=== PATIENT | male | born 1950 | race Caucasian/White ===

== ENCOUNTER 2018-07-09 23:38 | Emergency (ER) | payer MEDICARE ==
[~2018-07-09] VITALS: Ht 177.8 cm; Wt 65.3 kg
[2018-07-10] MEDS ORDERED: fentaNYL PF VIAL 100 MCG/2 ML VIAL IV ONE
[2018-07-10] MEDS ORDERED: FAMOTIDINE 20 MG/2 ML VIAL IVP ONE
[2018-07-10] MEDS ORDERED: ONDANSETRON PF 4 MG/2 ML VIAL. IV ONE
[2018-07-10 00:18] VITALS: BP 122/58
--- NOTE | 2018-07-10 00:23 | PHYS DOC ---
Past Medical History Past Medical History: Other Additional Past Medical Histor: NARCOLEPSY, HERNIA Additional Past Surgical Histo: HERNIA REPAIR Alcohol Use: Occasionally Drug Use: None Adult General Chief Complaint Chief Complaint: NAUSEA/VOMITING/DIARRHA HPI HPI Patient is a 68 year old male presents with abdominal pain. Patient states he has been having abdominal pain for 1 week and describes it as a crampy sensation. The pain is located in his lower abdominal region with no radiation. Additionally, the patient had an episode of nonbilious nonbloody vomit after eating food this evening. Nothing seems to improve his pain. Patient states he has been able to keep liquids down today. He denies any fevers, chills, diarrhea, hematochezia, hematemesis, chest pain, or shortness of breath. Review of Systems Review of Systems Constitutional: Denies fever or chills [] Eyes: Denies change in visual acuity, redness, or eye pain [] HENT: Denies nasal congestion or sore throat [] Respiratory: Denies cough or shortness of breath [] Cardiovascular: Denies chest pain or palpitations [] GI: Reports abdominal pain, nausea, vomiting, denies bloody stools or diarrhea [ ] : Denies dysuria or hematuria [] Musculoskeletal: Denies back pain or joint pain [] Integument: Denies rash or skin lesions [] Neurologic: Denies headache or focal weakness [] Complete systems were reviewed and found to be within normal limits, except as documented in this note. Current Medications Current Medications Current Medications Medications (Trade) Dose Ordered Sig/Astrid Start Time Stop Time Status Last Admin Dose Admin Famotidine (Pepcid Vial) 20 mg 1X ONCE 07/10/18 00:00 07/10/18 00:01 DC 07/10/18 00:32 20 MG Fentanyl Citrate (Fentanyl 2ml Vial) 50 mcg 1X ONCE 07/10/18 00:00 07/10/18 00:01 DC 07/10/18 00:32 50 MCG Ondansetron HCl (Zofran) 4 mg 1X ONCE 07/10/18 00:00 07/10/18 00:01 DC 07/10/18 00:32 4 MG Allergies Allergies Allergies Coded Allergies Type Severity Reaction Last Updated Verified Iodinated Contrast- Oral and IV Dye Allergy Unknown 07/09/18 Yes Physical Exam Physical Exam Constitutional: No acute distress, non-toxic appearance. [] HENT: Normocephalic, atraumatic, bilateral external ears normal, nose normal. [] Eyes: EOMI, conjunctiva normal. [] Neck: Normal range of motion, no tenderness, supple. [] Cardiovascular:Heart rate regular rhythm, no murmur [] Lungs & Thorax: Bilateral breath sounds clear to auscultation [] Abdomen: Bowel sounds normal, soft, lower abdominal tenderness, no rebound, rigidity, or guarding, no peritoneal sings, no rovsing, McBurney's, oscar or psoas signs. [] Skin: Warm, dry, no erythema, no rash. [] Back: No tenderness, no CVA tenderness. [] Extremities: No clubbing, ROM intact, no edema. [] Neurologic: Alert and oriented X 3, normal motor function, no focal deficits noted. [] Psychologic: Affect normal, mood normal. [] Current Patient Data Vital Signs Vital Signs Date Time Temp Pulse Resp B/P (MAP) Pulse Ox O2 Delivery O2 Flow Rate FiO2 07/10/18 00:32 100 Room Air 07/09/18 23:49 98.0 129 18 164/77 (106) 98.0 Lab Values Laboratory Tests Test 07/10/18 00:20 07/10/18 01:50 White Blood Count 6.6 x10^3/uL (4.0-11.0) Red Blood Count 3.72 x10^6/uL (4.30-5.70) L Hemoglobin 12.4 g/dL (13.0-17.5) L Hematocrit 36.7 % (39.0-53.0) L Mean Corpuscular Volume 99 fL (79-100) Mean Corpuscular Hemoglobin 33 pg (25-35) Mean Corpuscular Hemoglobin Concent 34 g/dL (31-37) Red Cell Distribution Width 16.9 % (11.5-14.5) H Platelet Count 156 x10^3/uL (140-400) Neutrophils (%) (Auto) 90 % (31-73) H Lymphocytes (%) (Auto) 2 % (24-48) L Monocytes (%) (Auto) 5 % (0-9) Eosinophils (%) (Auto) 2 % (0-3) Basophils (%) (Auto) 1 % (0-3) Neutrophils # (Auto) 5.9 x10^3uL (1.8-7.7) Lymphocytes # (Auto) 0.1 x10^3/uL (1.0-4.8) L Monocytes # (Auto) 0.3 x10^3/uL (0.0-1.1) Eosinophils # (Auto) 0.1 x10^3/uL (0.0-0.7) Basophils # (Auto) 0.1 x10^3/uL (0.0-0.2) Segmented Neutrophils % 84 % (35-66) H Band Neutrophils % 8 % (0-9) Lymphocytes % 1 % (24-48) L Monocytes % 4 % (0-10) Eosinophils % 3 % (0-5) Platelet Estimate Adequate (ADEQUATE) Prothrombin Time 14.8 SEC (11.7-14.0) H Prothrombin Time INR 1.2 (0.8-1.1) H PTT 30 SEC (24-38) Sodium Level 139 mmol/L (136-145) Potassium Level 4.6 mmol/L (3.5-5.1) Chloride Level 101 mmol/L (98-107) Carbon Dioxide Level 28 mmol/L (21-32) Anion Gap 10 (6-14) Blood Urea Nitrogen 13 mg/dL (8-26) Creatinine 1.0 mg/dL (0.7-1.3) Estimated GFR (Cockcroft-Gault) 74.1 BUN/Creatinine Ratio 13 (6-20) Glucose Level 120 mg/dL (70-99) H Lactic Acid Level 1.4 mmol/L (0.4-2.0) Calcium Level 8.6 mg/dL (8.5-10.1) Total Bilirubin 0.8 mg/dL (0.2-1.0) Aspartate Amino Transferase (AST) 55 U/L (15-37) H Alanine Aminotransferase (ALT) 32 U/L (16-63) Alkaline Phosphatase 122 U/L (46-116) H Total Protein 7.6 g/dL (6.4-8.2) Albumin 2.9 g/dL (3.4-5.0) L Albumin/Globulin Ratio 0.6 (1.0-1.7) L Lipase 125 U/L (73-393) Urine Collection Type Unknown Urine Color Yellow Urine Clarity Clear Urine pH 7.0 Urine Specific [place] 1.020 Urine Protein Negative mg/dL (NEG-TRACE) Urine Glucose (UA) Negative mg/dL (NEG) Urine Ketones (Stick) Negative mg/dL (NEG) Urine Blood Negative (NEG) Urine Nitrite Negative (NEG) Urine Bilirubin Negative (NEG) Urine Urobilinogen Dipstick 1.0 mg/dL (0.2 mg/dL) Urine Leukocyte Esterase Negative (NEG) Urine RBC 0 /HPF (0-2) Urine WBC Occ /HPF (0-4) Urine Squamous Epithelial Cells Few /LPF Urine Bacteria 0 /HPF (0-FEW) Urine Mucus Mod /LPF Laboratory Tests 07/10/18 00:20 Laboratory Tests 07/10/18 00:20 EKG EKG [] Radiology/Procedures Radiology/Procedures PROCEDURE: CT ABDOMEN PELVIS WO CONTRAST EXAM: CT Abdomen and Pelvis without IV contrast CLINICAL HISTORY: abdominal pain, N/V. COMPARISON: none TECHNIQUE: Helical CT of the abdomen and pelvis without intravenous contrast. Axial, coronal and sagittal reformatted images were generated. PQRS compliance statement - One or more of the following individualized dose reduction techniques were utilized for this study: 1. Automated exposure control 2. Adjustment of the mA and/or kV according to patient size 3. Use of iterative reconstruction technique FINDINGS: Lack of intravenous contrast limits evaluation of solid organs, vasculature, and lymph nodes. Lower chest: Small right pleural effusion. Wedge-shaped right opacities in the right lower lobe with air bronchograms may represent consolidation or atelectasis. Tree-in-bud opacities in the middle lobe. Coronary calcifications are seen. Pacer leads are noted. Abdomen and Pelvis: No focal liver lesion. Gallstones are seen within the gallbladder. No biliary ductal dilatation. Pancreas is unremarkable. Spleen is mildly enlarged measuring up to 13 cm in length. Right upper pole and interpolar renal cystic lesions are seen. Vascular calcifications are seen within the kidneys bilaterally. Punctate nonobstructing left interpolar and 3 mm right interpolar nonobstructing renal calculus. Moderate colonic stool content is seen. Colonic diverticulosis without evidence for acute diverticulitis. Appendix is not seen. No abdominal or pelvic ascites. No abdominal or pelvic lymphadenopathy. Dense atherosclerotic calcifications of the infrarenal aorta with focal ectasia of the infrarenal aorta measuring up to 2.9 cm. There is diffuse fatty atrophy of the paraspinal muscles Bones: Hip joint degenerative changes are seen. Degenerative changes of spine are noted. IMPRESSION: 1. Airspace opacities right lower lobe with air bronchograms likely consolidation. However atelectasis is not entirely excluded. 2. Small right pleural effusion. 3. No evidence of bowel obstruction. 4. Appendix is not seen. 5. Colonic diverticulosis without evidence for acute diverticulitis. Electronically signed by: Shahzad Murray MD (07/10/2018 2:17 AM) [facility] [id number] DICTATED and SIGNED BY: SHAHZAD MURRAY MD[] Course & Med Decision Making Course & Med Decision Making 68 year old male presented to the ER for nausea and vomiting. Patient states he had one episode of nonbilious nonbloody vomit this evening. Labs and imaging were obtained and posted to chart. Symptomatic treatment provided with interval improvement. CT scan demonstrated diverticulosis and constipation. Provided patient with prescriptions for nausea and constipation. Additionally provided patient with list of primary care providers follow-up. Patient stable for discharge with outpatient follow-up with PCP. Discussed findings and plan with patient and family, who acknowledge understanding and agreement. Dragon Disclaimer Dragon Disclaimer This electronic medical record was generated, in whole or in part, using a voice recognition dictation system. Departure Departure Impression: Primary Impression: Nausea & vomiting Additional Impression: Constipation Disposition: 01 HOME, SELF-CARE Condition: STABLE Referrals: BETTIE RODRIGUEZ MD Patient Instructions: Constipation, Adult, [id number], Nausea and Vomiting, [id number] Scripts Sennosides/Docusate Sodium (Colace 2-in-1 Tablet) 1 Each Tablet 1 EACH PO HS PRN for CONSTIPATION, #14 TAB Prov: DARREL LOTT DO 07/10/18 Famotidine (PEPCID) 20 Mg Tablet 20 MG PO BID, #14 TAB Prov: DARREL LOTT DO 07/10/18 Hyoscyamine Sulfate (LEVSIN-SL) 0.125 Mg Tab.subl 1 TAB SL PRN Q4HRS PRN for PAIN, #14 TAB 0 Refills Prov: DARREL LOTT DO 07/10/18 Ondansetron (ONDANSETRON ODT) 4 Mg Tab.rapdis 1 TAB PO PRN Q6-8HRS for VOMITING, #14 TAB Prov: DARREL LOTT DO 07/10/18 Problem Qualifiers Primary Impression: Nausea & vomiting Vomiting type: unspecified Vomiting Intractability: unspecified Qualified Codes: R11.2 - Nausea with vomiting, unspecified Additional Impression: Constipation Constipation type: unspecified constipation type Qualified Codes: K59.00 - Constipation, unspecified DARREL LOTT DO Jul 10, 2018 00:23
[2018-07-10 00:32] LABS: BASO # 0.1 x10^3/uL (0.0-0.2); BASO % 1 % (0-3); EOS # 0.1 x10^3/uL (0.0-0.7); EOS % 2 % (0-3); HEMATOCRIT 36.7 % (39.0-53.0); HEMOGLOBIN 12.4 g/dL (13.0-17.5); LYMPH # 0.1 x10^3/uL (1.0-4.8); LYMPH % 2 % (24-48); MEAN CORPUSCULAR HEMOGLOBIN 33 pg (25-35); MEAN CORPUSCULAR HGB CONC 34 g/dL (31-37); MEAN CORPUSCULAR VOLUME 99 fL (79-100); MONO # 0.3 x10^3/uL (0.0-1.1); MONO % 5 % (0-9); NEUT # 5.9 x10^3uL (1.8-7.7); NEUT % 90 % (31-73); PLATELET COUNT 156 x10^3/uL (140-400); RED BLOOD COUNT 3.72 x10^6/uL (4.30-5.70); RED CELL DISTRIBUTION WIDTH 16.9 % (11.5-14.5); WHITE BLOOD COUNT 6.6 x10^3/uL (4.0-11.0)
[2018-07-10 00:41] LABS: CALCIUM 8.6 mg/dL (8.5-10.1); GFR 74.1; POTASSIUM 4.6 mmol/L (3.5-5.1)
[2018-07-10 00:43] LABS: PROTHROMBIN TIME PATIENT 14.8 SEC (11.7-14.0)
[2018-07-10 00:56] LABS: ALBUMIN 2.9 g/dL (3.4-5.0); ALBUMIN/GLOBULIN RATIO 0.6 (1.0-1.7); TOTAL BILIRUBIN 0.8 mg/dL (0.2-1.0); TOTAL PROTEIN 7.6 g/dL (6.4-8.2)
[2018-07-10 01:09] LABS: % BANDS 8 % (0-9); % EOS 3 % (0-5); % LYMPHS 1 % (24-48); % MONOS 4 % (0-10); % SEGS 84 % (35-66); PLT ESTIMATE ADEQUATE (ADEQUATE)
[2018-07-10 01:58] LABS: BILIRUBIN,URINE NEGATIVE (NEG); CLARITY,URINE CLEAR; COLOR,URINE YELLOW; NITRITE,URINE NEGATIVE (NEG); PROTEIN,URINE NEGATIVE (NEG-TRACE)
[2018-07-10 02:07] LABS: BACTERIA,URINE 0 /HPF (0-FEW); RBC,URINE 0 /HPF (0-2); SQUAMOUS EPITHELIAL CELL,UR FEW /LPF; WBC,URINE OCC /HPF (0-4)
--- NOTE | 2018-07-10 02:20 | RAD ---
EXAM: CT Abdomen and Pelvis without IV contrast CLINICAL HISTORY: abdominal pain, N/V. COMPARISON: none TECHNIQUE: Helical CT of the abdomen and pelvis without intravenous contrast. Axial, coronal and sagittal reformatted images were generated. PQRS compliance statement - One or more of the following individualized dose reduction techniques were utilized for this study: 1. Automated exposure control 2. Adjustment of the mA and/or kV according to patient size 3. Use of iterative reconstruction technique FINDINGS: Lack of intravenous contrast limits evaluation of solid organs, vasculature, and lymph nodes. Lower chest: Small right pleural effusion. Wedge-shaped right opacities in the right lower lobe with air bronchograms may represent consolidation or atelectasis. Tree-in-bud opacities in the middle lobe. Coronary calcifications are seen. Pacer leads are noted. Abdomen and Pelvis: No focal liver lesion. Gallstones are seen within the gallbladder. No biliary ductal dilatation. Pancreas is unremarkable. Spleen is mildly enlarged measuring up to 13 cm in length. Right upper pole and interpolar renal cystic lesions are seen. Vascular calcifications are seen within the kidneys bilaterally. Punctate nonobstructing left interpolar and 3 mm right interpolar nonobstructing renal calculus. Moderate colonic stool content is seen. Colonic diverticulosis without evidence for acute diverticulitis. Appendix is not seen. No abdominal or pelvic ascites. No abdominal or pelvic lymphadenopathy. Dense atherosclerotic calcifications of the infrarenal aorta with focal ectasia of the infrarenal aorta measuring up to 2.9 cm. There is diffuse fatty atrophy of the paraspinal muscles Bones: Hip joint degenerative changes are seen. Degenerative changes of spine are noted. IMPRESSION: 1. Airspace opacities right lower lobe with air bronchograms likely consolidation. However atelectasis is not entirely excluded. 2. Small right pleural effusion. 3. No evidence of bowel obstruction. 4. Appendix is not seen. 5. Colonic diverticulosis without evidence for acute diverticulitis. Electronically signed by: Shahzad Dobbs MD (07/10/2018 2:17 AM) [facility]
[2018-07-10] MEDS ORDERED: FAMO-63 PO (02:34)
[2018-07-10] MEDS ORDERED: SENN-121 PO (02:34)
[2018-07-10] MEDS ORDERED: HYOS0.1265 SL (02:34)
[2018-07-10] MEDS ORDERED: ONDA4TAB12 PO (02:34)
== END 2018-07-10 03:00 | disposition home or self-care (01) ==
LOC: ER 23:38
DX: R11.2 Nausea with vomiting, unspecified (principal); K59.00 Constipation, unspecified; K57.90 Diverticulosis of intestine, part unspecified, without perforation or abscess without bleeding; J90 Pleural effusion, not elsewhere classified
CPT/HCPCS: 36415; 74176; 80053; 81001; 83605; 83690; 85007; 85025; 85610; 85730; 96374; 96375; 99284; J2405; J3010; J3490